=== PATIENT | male | born 1975 ===

== ENCOUNTER 2018-03-23 19:44 | Inpatient (IN) | payer OTHER ==
[2018-03-23] MEDS ORDERED: Piperacill/Tazo 3.375gm in Dex 3.375 GM/50 ML BAG IVPB STA (21:19)
[2018-03-23] MEDS ORDERED: Vancomycin 1 gm/NS 200 ml 1 GM/200 ML BAG IVPB STA (21:19)
--- NOTE | 2018-03-23 21:32 | C.PDOC ---
History Of Present Illness 42 year old male with a Hx of diabetes presents to the ER with a complaint of left foot redness and swelling for the past 4 days. Patient was placed on keflex with no improvement which prompted visit. Denies fever, chills, nausea, or vomiting. Time Seen by Provider: 03/23/18 21:07 Chief Complaint (Nursing): Lower Extremity Problem/Injury History Per: Patient History/Exam Limitations: no limitations Onset/Duration Of Symptoms: Days Current Symptoms Are (Timing): Still Present Recent travel outside of the [place]: No Past Medical History Reviewed: Historical Data, Nursing Documentation, Vital Signs Vital Signs: Last Vital Signs Temp 98.7 F 03/23/18 20:08 Pulse 90 03/23/18 20:08 Resp 18 03/23/18 20:08 BP 150/92 H 03/23/18 20:08 Pulse Ox 99 03/23/18 23:26 - Medical History PMH: Diabetes Surgical History: No Surg Hx Family History: States: Unknown Family Hx - Social History Hx Alcohol Use: Yes Hx Substance Use: No - Immunization History Hx Tetanus Toxoid Vaccination: Yes Hx Influenza Vaccination: No Hx Pneumococcal Vaccination: No Review Of Systems Except As Marked, All Systems Reviewed And Found Negative. Constitutional: Negative for: Fever, Chills Musculoskeletal: Positive for: Other (Foot redness) Physical Exam - Physical Exam Appears: Non-toxic Skin: Warm, Dry Head: Atraumatic, Normacephalic Eye(s): bilateral: Normal Inspection Oral Mucosa: Moist Chest: Symmetrical, No Tenderness Cardiovascular: Rhythm Regular Respiratory: Normal Breath Sounds, No Rales, No Rhonchi, No Wheezing Gastrointestinal/Abdominal: Soft, No Tenderness Back: No CVA Tenderness Extremity: Normal ROM (x4), Capillary Refill (<2 seconds), Other (Left great toe ulcer, redness and swelling to dorsal aspect of left foot) Pulses: Left Dorsalis Pedis: Normal, Right Dorsalis Pedis: Normal Neurological/Psych: Oriented x3, Normal Speech, Normal Motor, Normal Sensation Gait: Steady ED Course And Treatment - Laboratory Results Result Diagrams: 03/23/18 21:43 03/23/18 21:43 ECG: Interpreted By Me ECG Rhythm: Sinus Rhythm Interpretation Of ECG: nsr at rate of 85 bpm with nrm intervals, nrm axis, no st or twave abn. O2 Sat by Pulse Oximetry: 99 (Room air) Pulse Ox Interpretation: Normal Medical Decision Making Medical Decision Making: Plan: * Blood work * EKG * CXR * Urinalysis * Left foot x-ray * Zosyn * Vanco Assessment: Diabetic foot patient failed outpatient treatment will admit to medical surgical floor s/o Dr. Lindsey Discussed case with Dr. Lindsey at 1121 pm cxr - preliminary reading nad foot xray - prelim. reading no gas, no fracture. Disposition Discussed With DrPankaj: Mary Lindsey Counseled Patient/Family Regarding: Studies Performed, Diagnosis - Disposition Disposition: HOSPITALIZED Disposition Time: 23:25 Condition: FAIR - Clinical Impression Clinical Impression: Cellulitis - Scribe Statement The provider has reviewed the documentation as recorded by the Scribkathleen Aguirre All medical record entries made by the Tonjaibkathleen were at my direction and personally dictated by me. I have reviewed the chart and agree that the record accurately reflects my personal performance of the history, physical exam, medical decision making, and the department course for this patient. I have also personally directed, reviewed, and agree with the discharge instructions and disposition.
[2018-03-23 21:47] LABS: BASO % 0.5 % (0.0-2.0); EOS # 0.3 K/uL (0.0-0.7); EOS % 4.8 % (0.0-4.0); HEMOGLOBIN 13.2 g/dL (12.0-18.0); LYMPH # 2.2 K/uL (1.0-4.3); LYMPH % 40.1 % (20.0-40.0); MEAN CELL VOLUME 84.1 fL (80.0-94.0); MEAN CORPUSCULAR HEMOGLOBIN 29.3 pg (27.0-31.0); MEAN CORPUSCULAR HGB CONC 34.9 g/dL (33.0-37.0); MEAN PLATELET VOLUME 9.7 fL (7.2-11.7); MONO # 0.3 K/uL (0.0-0.8); MONO % 6.3 % (0.0-10.0); NEUT # 2.7 K/uL (1.8-7.0); NEUT % 48.3 % (50.0-75.0); NRBC % 0.1 % (0.0-2.0); RBC 4.48 Mil/uL (4.40-5.90); RED CELL DISTRIBUTION WIDTH 13.3 % (11.5-14.5); WHITE BLOOD COUNT 5.6 K/uL (4.8-10.8)
[2018-03-23 22:01] LABS: ALB/GLOB RATIO 1.5 (1.0-2.1); ALBUMIN 4.5 g/dL (3.5-5.0); ALT/SGPT 47 U/L (21-72); AST/SGOT 33 U/L (17-59); BLOOD UREA NITROGEN 16 mg/dL (9-20); CALCIUM 9.3 mg/dl (8.6-10.4); GFR AFRICAN-AMERICAN > 60; GFR NON-AFRICAN AMERICAN > 60
[2018-03-23 22:25] LABS: VENOUS BLOOD GAS BASE EXCESS 1.8 mmol/L (0.0-2.0); VENOUS BLOOD GAS PCO2 37 mmHg (40-60); VENOUS BLOOD GAS PO2 71 mm/Hg (30-55); VENOUS BLOOD PH 7.45 (7.32-7.43)
[2018-03-23] MEDS ORDERED: Piperacillin/Tazobact 3.375 gm 100 ML IVPB ONE (22:33)
[2018-03-23 22:56] LABS: URINE BILIRUBIN NEGATIVE (NEGATIVE); URINE BLOOD NEGATIVE (NEGATIVE); URINE CLARITY Clear (Clear); URINE COLOR Straw (YELLOW); URINE GLUCOSE (UA) NORMAL (Normal); URINE LEUKOCYTE ESTERASE NEG Leu/uL (Negative); URINE PROTEIN NEGATIVE (NEGATIVE); URINE UROBILINOGEN NORMAL mg/dL (0.2-1.0)
[2018-03-24 00:44] VITALS: RESP 20
[2018-03-24] MEDS: Piperacill/Tazo 3.375gm in Dex 3.375 GM/50 ML BAG IVPB SCH ×3 (05:49→21:19)
[2018-03-24] MEDS: (Novolin R) Insulin Human Regular 100 units/ml vial SC SCH ×4 (07:45→21:18)
[2018-03-24] MEDS ORDERED: (Lantus) Insulin Glargine, Recombinant SC SCH (09:00)
[2018-03-24 09:11] LABS: BASO % 0.5 % (0.0-2.0); EOS # 0.2 K/uL (0.0-0.7); HEMOGLOBIN 13.5 g/dL (12.0-18.0); LYMPH # 1.7 K/uL (1.0-4.3); LYMPH % 26.4 % (20.0-40.0); MEAN CELL VOLUME 84.6 fL (80.0-94.0); MEAN CORPUSCULAR HEMOGLOBIN 30.4 pg (27.0-31.0); MEAN CORPUSCULAR HGB CONC 35.9 g/dL (33.0-37.0); MEAN PLATELET VOLUME 10.1 fL (7.2-11.7); MONO # 0.4 K/uL (0.0-0.8); MONO % 6.5 % (0.0-10.0); NEUT # 4.1 K/uL (1.8-7.0); NEUT % 63.6 % (50.0-75.0); NRBC % 0.1 % (0.0-2.0); RBC 4.43 Mil/uL (4.40-5.90); RED CELL DISTRIBUTION WIDTH 13.4 % (11.5-14.5); WHITE BLOOD COUNT 6.5 K/uL (4.8-10.8)
[2018-03-24 09:34] LABS: ALB/GLOB RATIO 1.5 (1.0-2.1); ALBUMIN 4.3 g/dL (3.5-5.0); ALT/SGPT 45 U/L (21-72); AST/SGOT 29 U/L (17-59); BLOOD UREA NITROGEN 14 mg/dL (9-20); CALCIUM 9.3 mg/dl (8.6-10.4); GFR AFRICAN-AMERICAN > 60; GFR NON-AFRICAN AMERICAN > 60
[2018-03-24] MEDS ORDERED: MUPIROCIN 2% TOP SCH (10:00)
--- NOTE | 2018-03-24 10:02 | RAD ---
HISTORY: Sepsis Patient COMPARISON: No prior. FINDINGS: LUNGS: No active pulmonary disease. PLEURA: No significant pleural effusion identified, no pneumothorax apparent. CARDIOVASCULAR: Normal. OSSEOUS STRUCTURES: No significant abnormalities. VISUALIZED UPPER ABDOMEN: Normal. OTHER FINDINGS: None. IMPRESSION: No active disease.
--- NOTE | 2018-03-24 10:03 | RAD ---
PROCEDURE: Left Foot Radiographs. HISTORY: toe infection COMPARISON: None. FINDINGS: BONES: No acute fracture. JOINTS: Normal. SOFT TISSUES: Normal. OTHER FINDINGS: None. IMPRESSION: No demonstrated fracture or dislocation.
--- NOTE | 2018-03-24 11:48 | CP.PCM.CON ---
History of Present Illness - History of Present Illness History of Present Illness: INFECTIOUS DISEASE CONSULT; HPI; 42 year old male with a Hx of diabetes presents to the ER with a complaint of left foot redness and swelling for the past 4 days. PATIENT STATES HE DEVELOPED A BLISTER WHICH POPPED OPEN WITH SOME SEROUS SANGUINOUS DRAINAGE. Patient was placed on keflex with no improvement which prompted visit. Denies fever, chills, nausea, or vomiting. X-RAY OF THE LEFT FOOT SHOWED NO ACUTE FRACTURE. INFECTIOUS DISEASE CONSULTATION REQUESTED BY PMD FOR DIABETIC FOOT INFECTION. PATIENT PRESENTLY STARTED ON iv zOSYN 3.375 EVERY 8 HOURLY. 03/24/18 PMH: Diabetes Surgical History: No Surg Hx Family History: States: Unknown Family Hx - Social History Hx Alcohol Use: Yes Hx Substance Use: No - Immunization History Hx Tetanus Toxoid Vaccination: Yes Hx Influenza Vaccination: No Hx Pneumococcal Vaccination: No ALLERGY; NKA. Review of Systems - Constitutional Constitutional: absent: Chills, Fever - EENT Eyes: absent: Change in Vision, Floaters Nose/Mouth/Throat: absent: Mouth Lesions - Cardiovascular Cardiovascular: absent: Chest Pain, Dyspnea - Gastrointestinal Gastrointestinal: absent: Abdominal Pain, Fecal Incontinence, Nausea, Vomiting - Musculoskeletal Musculoskeletal: As Per HPI - Integumentary Integumentary: Skin Ulcer (LEFT FOOT) Additional comments: Left great toe ulcer, redness and swelling to dorsal aspect of left foot) Pulses: Left Dorsalis Pedis: Normal, Right Dorsalis Pedis: Normal - Neurological Neurological: absent: Headaches - Hematologic/Lymphatic Hematologic: As Per HPI. absent: Easy Bleeding, Easy Bruising, Lymphadenopathy Past Patient History - Past Medical History & Family History Past Medical History?: No - Past Social History Smoking Status: Smoker Currrent Status Unknown - ENDOCRINE/METABOLIC Hx Diabetes Mellitus Type 1: Yes - HEMATOLOGICAL/ONCOLOGICAL Hx Blood Disorders: No Hx Blood Transfusions: No - INTEGUMENTARY Other/Comment: left big toe skininfection (03/11/18) - MUSCULOSKELETAL/RHEUMATOLOGICAL Hx Falls: No - GASTROINTESTINAL Hx Gastrointestinal Disorders: No - GENITOURINARY/GYNECOLOGICAL Hx Genitourinary Disorders: No - PSYCHIATRIC Hx Substance Use: No - SURGICAL HISTORY Hx Surgeries: No Other/Comment: no surgical history - ANESTHESIA Hx Anesthesia: No Meds Allergies/Adverse Reactions: Allergies Allergy/AdvReac Type Severity Reaction Status Date / Time No Known Allergies Allergy Unverified 03/23/18 20:01 - Medications Medications: Current Medications Gabapentin (Neurontin) 300 mg PO BID [facility] Last Admin: 03/24/18 09:48 Dose: 300 mg Heparin Sodium (Porcine) (Heparin) 5,000 units SC Q12 [facility] Last Admin: 03/24/18 09:48 Dose: 5,000 units Piperacillin Sod/Tazobactam Sod (Zosyn 3.375 Gm Iv Premix) 3.375 gm in 50 mls @ 100 mls/hr IVPB Q8 [facility] PRN Reason: Protocol Last Admin: 03/24/18 05:49 Dose: 100 mls/hr Vancomycin HCl 1,000 mg/ (Sodium Chloride) 250 mls @ 166.6 mls/hr IVPB Q12H [facility] PRN Reason: Protocol Insulin Glargine (Lantus) 15 unit SC TIDPC [facility] Insulin Human Regular (Novolin R) 0 unit SC ACHS [facility] PRN Reason: Protocol Last Admin: 03/24/18 07:45 Dose: 1 unit Metformin HCl (Glucophage Xr) 500 mg PO BID [facility] Last Admin: 03/24/18 09:48 Dose: 500 mg Mupirocin (Bactroban Ointment) 1 gm TOP BID [facility] Last Admin: 03/24/18 10:07 Dose: 1 applic Pneumococcal Polyvalent Vaccine (Pneumovax 23 Vaccine) 0.5 ml IM .ONCE ONE Stop: 03/26/18 10:01 Physical Exam - Constitutional Appears: No Acute Distress - Head Exam Head Exam: NORMAL INSPECTION - Eye Exam Eye Exam: EOMI, PERRL - ENT Exam ENT Exam: Mucous Membranes Moist - Neck Exam Neck exam: Positive for: Normal Inspection - Respiratory Exam Respiratory Exam: Clear to Auscultation Bilateral, NORMAL BREATHING PATTERN - Cardiovascular Exam Cardiovascular Exam: REGULAR RHYTHM, +S1, +S2 - GI/Abdominal Exam GI & Abdominal Exam: Normal Bowel Sounds, Soft. absent: Organomegaly, Tenderness - Extremities Exam Extremities exam: Positive for: normal capillary refill, pedal pulses present ( Left great toe ulcer, redness and swelling to dorsal aspect of left foot)). Negative for: calf tenderness, pedal edema - Neurological Exam Neurological exam: Oriented x3, Reflexes Normal - Psychiatric Exam Psychiatric exam: Normal Mood - Skin Skin Exam: Normal Color, Warm Results - Vital Signs Recent Vital Signs: Last Vital Signs Temp 98 F 03/24/18 07:42 Pulse 81 03/24/18 07:42 Resp 20 03/24/18 07:42 BP 136/91 H 03/24/18 07:42 Pulse Ox 100 03/24/18 07:42 - Labs Result Diagrams: 03/24/18 08:55 03/24/18 08:55 Labs: Laboratory Results - last 24 hr 03/23/18 03/23/18 03/23/18 20:10 21:43 21:43 WBC 5.6 RBC 4.48 Hgb 13.2 Hct 37.7 MCV 84.1 MCH 29.3 MCHC 34.9 RDW 13.3 Plt Count 182 MPV 9.7 Neut % (Auto) 48.3 L Lymph % (Auto) 40.[address] [place] % (Auto) 6.3 Eos % (Auto) 4.8 H Baso % (Auto) 0.5 Neut # (Auto) 2.7 Lymph # (Auto) 2.2 [place] # (Auto) 0.3 Eos # (Auto) 0.3 Baso # (Auto) 0.0 pO2 VBG pH VBG pCO2 VBG HCO3 VBG Total CO2 VBG O2 Sat (Calc) VBG Base Excess VBG Potassium Glucose Lactate FiO2 Sodium 137 Potassium 4.1 Chloride 102 Carbon Dioxide 24 Anion Gap 16 BUN 16 Creatinine 0.7 L Est GFR ( Amer) > 60 Est GFR (Non-Af Amer) > 60 POC Glucose (mg/dL) 217 H Random Glucose 182 H Calcium 9.3 Total Bilirubin 0.6 AST 33 ALT 47 Alkaline Phosphatase 58 Total Protein 7.5 Albumin 4.5 Globulin 3.1 Albumin/Globulin Ratio 1.5 Venous Blood Potassium Urine Color Urine Clarity Urine pH Ur Specific [place] Urine Protein Urine Glucose (UA) Urine Ketones Urine Blood Urine Nitrate Urine Bilirubin Urine Urobilinogen Ur Leukocyte Esterase Urine WBC (Auto) 03/23/18 03/23/18 03/24/18 22:20 22:49 07:17 WBC RBC Hgb Hct MCV MCH MCHC RDW Plt Count MPV Neut % (Auto) Lymph % (Auto) [place] % (Auto) Eos % (Auto) Baso % (Auto) Neut # (Auto) Lymph # (Auto) [place] # (Auto) Eos # (Auto) Baso # (Auto) pO2 71 H VBG pH 7.45 H VBG pCO2 37 L VBG HCO3 26.3 VBG Total CO2 26.8 VBG O2 Sat (Calc) 97.8 H VBG Base Excess 1.8 VBG Potassium 3.6 Glucose 164 H Lactate 0.9 FiO2 21.0 Sodium 138.0 Potassium Chloride 108.0 H Carbon Dioxide Anion Gap BUN Creatinine Est GFR ( Amer) Est GFR (Non-Af Amer) POC Glucose (mg/dL) 153 H Random Glucose Calcium Total Bilirubin AST ALT Alkaline Phosphatase Total Protein Albumin Globulin Albumin/Globulin Ratio Venous Blood Potassium 3.6 Urine Color Straw Urine Clarity Clear Urine pH 5.0 Ur Specific [place] 1.005 Urine Protein Negative Urine Glucose (UA) Normal Urine Ketones Negative Urine Blood Negative Urine Nitrate Negative Urine Bilirubin Negative Urine Urobilinogen Normal Ur Leukocyte Esterase Neg Urine WBC (Auto) < 1 03/24/18 03/24/18 03/24/18 08:55 08:55 11:05 WBC 6.5 RBC 4.43 Hgb 13.5 Hct 37.5 MCV 84.6 MCH 30.4 MCHC 35.9 RDW 13.4 Plt Count 175 MPV 10.1 Neut % (Auto) 63.6 Lymph % (Auto) 26.4 [place] % (Auto) 6.5 Eos % (Auto) 3.0 Baso % (Auto) 0.5 Neut # (Auto) 4.1 Lymph # (Auto) 1.7 [place] # (Auto) 0.4 Eos # (Auto) 0.2 Baso # (Auto) 0.0 pO2 VBG pH VBG pCO2 VBG HCO3 VBG Total CO2 VBG O2 Sat (Calc) VBG Base Excess VBG Potassium Glucose Lactate FiO2 Sodium 140 Potassium 4.1 Chloride 100 Carbon Dioxide 30 Anion Gap 15 BUN 14 Creatinine 0.8 Est GFR ( Amer) > 60 Est GFR (Non-Af Amer) > 60 POC Glucose (mg/dL) 233 H Random Glucose 173 H Calcium 9.3 Total Bilirubin 0.9 AST 29 ALT 45 Alkaline Phosphatase 64 Total Protein 7.1 Albumin 4.3 Globulin 2.8 Albumin/Globulin Ratio 1.5 Venous Blood Potassium Urine Color Urine Clarity Urine pH Ur Specific [place] Urine Protein Urine Glucose (UA) Urine Ketones Urine Blood Urine Nitrate Urine Bilirubin Urine Urobilinogen Ur Leukocyte Esterase Urine WBC (Auto) - Imaging and Cardiology Chest x-ray Status: Report reviewed by me (NAD) Assessment & Plan (1) Diabetic infection of left foot Assessment and Plan: PANCULTURES. ESR. CRP. MRSA SCREEN. CONTINUE iv ZOSYN 3.375 EVERY 8 HOURLY 03/24/18. ADD iv VANCOMYCIN 1 G EVERY 12 HOURLY 03/24/18. follow-up Vanco trough level prior to the fourth dose and keep it between 15 - 20. Monitor renal functions . LWC . THREE-PHASE BONE SCAN R/O OSTEOMYELITIS LEFT BIG TOE. Status: Acute (2) Cellulitis Status: Acute (3) DM (diabetes mellitus) Assessment and Plan: PATIENT HAS DIABETES MELLITUS -TYPE 2. MONITOR HEMOGLOBIN -A1C PATIENT Status: Acute
[2018-03-24] MEDS: Vancomycin 1 gm/NS 200 ml 1 GM/200 ML BAG IVPB SCH (14:15)
--- NOTE | 2018-03-24 14:43 | CP.PCM.HP ---
History of Present Illness - History of Present Illness History of Present Illness: COMPREHENSIVE HISTORY & PHYSICAL EXAM HPI 42 years old male admitted from the emergency room with swelling and ulceration of the left foot with history of diabetes. 4 days ago patient had pain and swelling of the left foot which is increased in intensity and size associated with pain. There is also mild discharge. PAST HIST. Type 2 diabetes on insulin PERSONAL HIST: Smoking. N Alcohol. N Allergy N Travel_- . FAMILY HIST : ROS : Constitutional: Negative for weight change, chills, night sweats, fatigue and usage of assist device. Eyes: Negative for redness, swelling, itching, discharge, vision changes, blurry vision, double vision, glaucoma, cataracts, Ears: Negative for hearing loss, ringing, , tinnitus, vertigo Nose: Negative for rhinorrhea, stuffiness, sniffing, itching, postnasal drip, discoloration, nasal congestion and epistaxis. Throat: Negative for throat clearing, sore throat, hoarseness, difficulty swallowing and difficulty speaking. Respiratory: Negative for cough, , sputum production, chest tightness, wheezing, pleuritic chest pain ,daytime somnolence, chronic cough, hemoptysis, snoring at night, Cardiovascular: Negative for chest pain, palpitations, orthopnea, PND, Edema of legs, leg cramps, angina, claudication, , irregular heartbeat, Neurology: Negative for irritability, muscle weakness, numbness and tingling, seizures, tremors, migraines, slurred speech, syncope, memory loss, mood changes , recurrent headaches Gastrointestinal: Negative for difficulty swallowing, diarrhea, constipation, black stools, rectal bleeding, nausea, flatulence, reflux, poor appetite, changes in bowel habits, abdominal pain Genitourinary: Negative for frequent urination, hematuria, discharge, incontinence, urinary retention, frequent UTI, Psychiatric: Negative for depression, anxiety/panic, suicidal tendencies, Musculoskeletal: Negative for swollen joints, back pain, , neck pain, morning stiffness of joints, . Skin: Negative for rash, ulcers, itching, dry skin and pigmented lesions. P/E: Constitutional: Appears stated age and in no apparent distress. Head: Normocephalic. Ears: External ear canals patent without inflammation. Tympanic membranes intact with normal light reflex and landmark. Eyes: Pupils are central, bilaterally equal, symmetrical and reacts to light with normal movements and no icterus or pallor. Nose: External nares are patent. Mucosa is pink Mouth-Throat: Good general appearance and condition. No post-pharyngeal/oropharyngeal erythema and tonsillar hypertrophy. Good dental hygiene. Neck-Lymphatic: Neck is supple with normal ROM, no thyromegaly, lymph nodes or masses. JVD is normal with no carotid bruit. Lungs: Clear to percussion and auscultation with bilateral normal air entry. Cardiovascular: S1 and S2 are normal with no murmurs, gallops and rub. GI Exam: No hepatomegaly. Abdomen is soft and non-tender. No Organomegaly , masses or hernias are evident and bowel sounds are normal and active. Neurology: Higher function and all cranial nerves intact, with no gross motor or sensory deficit. Superficial and deep reflexes are normal with downwards planters. No cerebellar deficit with normal gait. Musculoskeletal: No tender spots with normal curvature of the spine with no swelling or restricted ROM of the small and large joints. Extremities: Homans sign absent. Intact pulses with no pitting edema, calf tenderness or skin color changes. Dorsum of the left foot shows erythema and cellulitis the tip of the left toes there is superficial ulceration. Skin: No rash, eruptions or abnormal skin pigmentation LAB/RADIOLOGY: ASSESMENT : Left foot diabetic foot infection. Type 2 diabetes on insulin PLAN: Local therapy for the foot, IV antibiotics and ID evaluation. Present on Admission - Present on Admission Any Indicators Present on Admission: No Past Patient History - Past Medical History & Family History Past Medical History?: No - Past Social History Smoking Status: Smoker Currrent Status Unknown - ENDOCRINE/METABOLIC Hx Diabetes Mellitus Type 1: Yes - HEMATOLOGICAL/ONCOLOGICAL Hx Blood Disorders: No Hx Blood Transfusions: No - INTEGUMENTARY Other/Comment: left big toe skininfection (03/11/18) - MUSCULOSKELETAL/RHEUMATOLOGICAL Hx Falls: No - GASTROINTESTINAL Hx Gastrointestinal Disorders: No - GENITOURINARY/GYNECOLOGICAL Hx Genitourinary Disorders: No - PSYCHIATRIC Hx Substance Use: No - SURGICAL HISTORY Hx Surgeries: No Other/Comment: no surgical history - ANESTHESIA Hx Anesthesia: No Meds Allergies/Adverse Reactions: Allergies Allergy/AdvReac Type Severity Reaction Status Date / Time No Known Allergies Allergy Unverified 03/23/18 20:01 Results - Vital Signs Recent Vital Signs: Last Vital Signs Temp 98 F 07/04/18 07:42 Pulse 81 03/24/18 07:42 Resp 20 03/24/18 07:42 BP 136/91 H 03/24/18 07:42 Pulse Ox 100 03/24/18 07:42 - Labs Result Diagrams: 03/24/18 08:55 03/24/18 08:55 Labs: Laboratory Results - last 24 hr 03/23/18 03/23/18 03/23/18 20:10 21:43 21:43 WBC 5.6 RBC 4.48 Hgb 13.2 Hct 37.7 MCV 84.1 MCH 29.3 MCHC 34.9 RDW 13.3 Plt Count 182 MPV 9.7 Neut % (Auto) 48.3 L Lymph % (Auto) 40.1 H [place] % (Auto) 6.3 Eos % (Auto) 4.8 H Baso % (Auto) 0.5 Neut # (Auto) 2.7 Lymph # (Auto) 2.2 [place] # (Auto) 0.3 Eos # (Auto) 0.3 Baso # (Auto) 0.0 pO2 VBG pH VBG pCO2 VBG HCO3 VBG Total CO2 VBG O2 Sat (Calc) VBG Base Excess VBG Potassium Glucose Lactate FiO2 Sodium 137 Potassium 4.1 Chloride 102 Carbon Dioxide 24 Anion Gap 16 BUN 16 Creatinine 0.7 L Est GFR ( Amer) > 60 Est GFR (Non-Af Amer) > 60 POC Glucose (mg/dL) 217 H Random Glucose 182 H Calcium 9.3 Total Bilirubin 0.6 AST 33 ALT 47 Alkaline Phosphatase 58 Total Protein 7.5 Albumin 4.5 Globulin 3.1 Albumin/Globulin Ratio 1.5 Venous Blood Potassium Urine Color Urine Clarity Urine pH Ur Specific [place] Urine Protein Urine Glucose (UA) Urine Ketones Urine Blood Urine Nitrate Urine Bilirubin Urine Urobilinogen Ur Leukocyte Esterase Urine WBC (Auto) 03/23/18 03/23/18 03/24/18 22:20 22:49 07:17 WBC RBC Hgb Hct MCV MCH MCHC RDW Plt Count MPV Neut % (Auto) Lymph % (Auto) [place] % (Auto) Eos % (Auto) Baso % (Auto) Neut # (Auto) Lymph # (Auto) [place] # (Auto) Eos # (Auto) Baso # (Auto) pO2 71 H VBG pH 7.45 H VBG pCO2 37 L VBG HCO3 26.3 VBG Total CO2 26.8 VBG O2 Sat (Calc) 97.8 H VBG Base Excess 1.8 VBG Potassium 3.6 Glucose 164 H Lactate 0.9 FiO2 21.0 Sodium 138.0 Potassium Chloride 108.0 H Carbon Dioxide Anion Gap BUN Creatinine Est GFR ( Amer) Est GFR (Non-Af Amer) POC Glucose (mg/dL) 153 H Random Glucose Calcium Total Bilirubin AST ALT Alkaline Phosphatase Total Protein Albumin Globulin Albumin/Globulin Ratio Venous Blood Potassium 3.6 Urine Color Straw Urine Clarity Clear Urine pH 5.0 Ur Specific [place] 1.005 Urine Protein Negative Urine Glucose (UA) Normal Urine Ketones Negative Urine Blood Negative Urine Nitrate Negative Urine Bilirubin Negative Urine Urobilinogen Normal Ur Leukocyte Esterase Neg Urine WBC (Auto) < 1 03/24/18 03/24/18 03/24/18 08:55 08:55 11:05 WBC 6.5 RBC 4.43 Hgb 13.5 Hct 37.5 MCV 84.6 MCH 30.4 MCHC 35.9 RDW 13.4 Plt Count 175 MPV 10.1 Neut % (Auto) 63.6 Lymph % (Auto) 26.4 [place] % (Auto) 6.5 Eos % (Auto) 3.0 Baso % (Auto) 0.5 Neut # (Auto) 4.1 Lymph # (Auto) 1.7 [place] # (Auto) 0.4 Eos # (Auto) 0.2 Baso # (Auto) 0.0 pO2 VBG pH VBG pCO2 VBG HCO3 VBG Total CO2 VBG O2 Sat (Calc) VBG Base Excess VBG Potassium Glucose Lactate FiO2 Sodium 140 Potassium 4.1 Chloride 100 Carbon Dioxide 30 Anion Gap 15 BUN 14 Creatinine 0.8 Est GFR ( Amer) > 60 Est GFR (Non-Af Amer) > 60 POC Glucose (mg/dL) 233 H Random Glucose 173 H Calcium 9.3 Total Bilirubin 0.9 AST 29 ALT 45 Alkaline Phosphatase 64 Total Protein 7.1 Albumin 4.3 Globulin 2.8 Albumin/Globulin Ratio 1.5 Venous Blood Potassium Urine Color Urine Clarity Urine pH Ur Specific [place] Urine Protein Urine Glucose (UA) Urine Ketones Urine Blood Urine Nitrate Urine Bilirubin Urine Urobilinogen Ur Leukocyte Esterase Urine WBC (Auto)
[2018-03-24] MEDS: (Lantus) Insulin Glargine, Recombinant SC SCH (21:20)
[2018-03-25] MEDS: Vancomycin 1 gm/NS 200 ml 1 GM/200 ML BAG IVPB SCH ×2 (00:50→14:23)
[2018-03-25] MEDS: Piperacill/Tazo 3.375gm in Dex 3.375 GM/50 ML BAG IVPB SCH ×3 (06:06→21:01)
[2018-03-25 08:20] LABS: ALB/GLOB RATIO 1.4 (1.0-2.1); ALBUMIN 3.9 g/dL (3.5-5.0); ALT/SGPT 40 U/L (21-72); AST/SGOT 25 U/L (17-59); BILIRUBIN,DIRECT 0.4 mg/dL (0.0-0.4); BLOOD UREA NITROGEN 12 mg/dL (9-20); CALCIUM 8.7 mg/dl (8.6-10.4); GFR AFRICAN-AMERICAN > 60; GFR NON-AFRICAN AMERICAN > 60
[2018-03-25] MEDS: (Novolin R) Insulin Human Regular 100 units/ml vial SC SCH ×4 (08:29→22:06)
[2018-03-25 09:16] LABS: BASO % 0.4 % (0.0-2.0); EOS # 0.2 K/uL (0.0-0.7); EOS % 4.3 % (0.0-4.0); HEMOGLOBIN 13.1 g/dL (12.0-18.0); LYMPH # 1.5 K/uL (1.0-4.3); LYMPH % 31.5 % (20.0-40.0); MEAN CORPUSCULAR HGB CONC 35.7 g/dL (33.0-37.0); MONO # 0.3 K/uL (0.0-0.8); MONO % 7.3 % (0.0-10.0); NEUT # 2.6 K/uL (1.8-7.0); NEUT % 56.5 % (50.0-75.0); RBC 4.37 Mil/uL (4.40-5.90); RED CELL DISTRIBUTION WIDTH 13.9 % (11.5-14.5); WHITE BLOOD COUNT 4.7 K/uL (4.8-10.8)
--- NOTE | 2018-03-25 12:57 | CARD ---
APPROVED REPORT EKG Measurement Heart [id number] <Conclusion> Normal sinus rhythm Normal ECG
--- NOTE | 2018-03-25 13:49 | CP.PCM.PN ---
<Mary Lindsey N - Last Filed: 03/25/18 13:47> Subjective - Date & Time of Evaluation Date of Evaluation: 03/25/18 Time of Evaluation: 13:48 - Subjective Subjective: CHIEF COMPLAINTS TODAY : patient has discomfort in the left foot. ROS. HEENT : N. Resp : No cough, wheezing ,pleuritic CP ,or hemoptysis Cardio : No anginal CP, PND, orthopnea, palpitation GI : No abd.pain, n/v ,diarrhea or GI bleeding . HAND BANDER : No headache, vertigo, focal deficit. Musculoskel : No joint swelling , Derm : No rash Psych : Normal affect. Ext : No swelling ,calf pain PE. Pt. is alert awake in no distress. V.S As noted in the chart Head ,ear nose,throat and eyes : Normal. Neck : Supple with normal carotids. Lungs: Clear air entry. Heart : S1 & S2 normal with S4. No murmur. Abd : Soft non tender with normal bowel sounds. Neuro : Moves all ext. with no localized deficit. Ext : No edema with intact pulses.Non tender calves . Left foot on the dorsum there is mild cellulitis and there is a superficial ulcer in the left big toe. Derm : No rashes or decubitus ulcer. LABS/RADIOLOGY: ASSESSMENT/PLAN : awaiting bone scan for osteomyelitis. Continue IV antibiotics and local wound care and insulin. Objective - Vital Signs/Intake and Output Vital Signs (last 24 hours): Temp Pulse Resp BP Pulse Ox 97.9 F 81 20 144/90 99 03/25/18 07:56 03/25/18 07:56 03/25/18 07:56 03/25/18 07:56 03/25/18 07:56 Intake and Output: 03/25/18 03/25/18 11:59 23:59 Intake Total 450 Balance 450 - Medications Medications: Current Medications Gabapentin (Neurontin) 300 mg PO BID [facility] Last Admin: 03/25/18 10:58 Dose: 300 mg Heparin Sodium (Porcine) (Heparin) 5,000 units SC Q12 [facility] Last Admin: 03/25/18 10:58 Dose: 5,000 units Piperacillin Sod/Tazobactam Sod (Zosyn 3.375 Gm Iv Premix) 3.375 gm in 50 mls @ 100 mls/hr IVPB Q8 [facility] PRN Reason: Protocol Last Admin: 03/25/18 06:06 Dose: 100 mls/hr Vancomycin/Sodium Chloride (Vancomycin 1 Gm/Ns 200 Ml) 1 gm in 200 mls @ 133.333 mls/hr IVPB Q12H [facility] PRN Reason: Protocol Stop: 03/29/18 13:01 Last Admin: 03/25/18 00:50 Dose: 133.333 mls/hr Insulin Glargine (Lantus) 15 unit SC HS [facility] Last Admin: 03/24/18 21:20 Dose: 15 units Insulin Human Regular (Novolin R) 0 unit SC ACHS [facility] PRN Reason: Protocol Last Admin: 03/25/18 12:15 Dose: 3 unit Metformin HCl (Glucophage Xr) 500 mg PO BID [facility] Last Admin: 03/25/18 10:58 Dose: 500 mg Mupirocin (Bactroban Ointment) 1 gm TOP BID [facility] Last Admin: 03/25/18 10:59 Dose: 1 applic Pneumococcal Polyvalent Vaccine (Pneumovax 23 Vaccine) 0.5 ml IM .ONCE ONE Stop: 03/26/18 10:01 - Labs Labs: 03/25/18 07:49 03/25/18 07:49 <Álvaro Gunn - Last Filed: 03/26/18 01:17> Objective - Vital Signs/Intake and Output Vital Signs (last 24 hours): Temp Pulse Resp BP Pulse Ox 97.9 F 79 20 132/86 97 03/25/18 16:00 03/25/18 16:00 03/25/18 16:00 03/25/18 16:00 03/25/18 16:00 Intake and Output: 03/25/18 03/26/18 18:59 06:59 Intake Total 600 350 Output Total 600 Balance 600 -250 - Medications Medications: Current Medications Gabapentin (Neurontin) 300 mg PO BID [facility] Last Admin: 03/25/18 17:12 Dose: 300 mg Heparin Sodium (Porcine) (Heparin) 5,000 units SC Q12 [facility] Last Admin: 03/25/18 21:02 Dose: 5,000 units Piperacillin Sod/Tazobactam Sod (Zosyn 3.375 Gm Iv Premix) 3.375 gm in 50 mls @ 100 mls/hr IVPB Q8 [facility] PRN Reason: Protocol Last Admin: 03/25/18 21:01 Dose: 100 mls/hr Vancomycin/Sodium Chloride (Vancomycin 1 Gm/Ns 200 Ml) 1 gm in 200 mls @ 133.333 mls/hr IVPB Q12H [facility] PRN Reason: Protocol Stop: 03/29/18 13:01 Last Admin: 03/26/18 01:11 Dose: 133.333 mls/hr Insulin Glargine (Lantus) 15 unit SC HS [facility] Last Admin: 03/25/18 21:02 Dose: 15 units Insulin Human Regular (Novolin R) 0 unit SC ACHS [facility] PRN Reason: Protocol Last Admin: 03/25/18 22:06 Dose: Not Given Metformin HCl (Glucophage Xr) 500 mg PO BID [facility] Last Admin: 03/25/18 17:11 Dose: 500 mg Mupirocin (Bactroban Ointment) 1 gm TOP BID [facility] Last Admin: 03/25/18 18:00 Dose: Not Given Pneumococcal Polyvalent Vaccine (Pneumovax 23 Vaccine) 0.5 ml IM .ONCE ONE Stop: 03/26/18 10:01 - Labs Labs: 03/25/18 07:49 03/25/18 07:49 Assessment and Plan (1) Diabetic infection of left foot Status: Acute (2) Cellulitis Status: Acute (3) DM (diabetes mellitus) Status: Acute
--- NOTE | 2018-03-25 16:07 | NM ---
PROCEDURE: Three-phase bone scan HISTORY: Osteomyelitis suspected left 1st toe. COMPARISON: 03/23/2018. Left foot radiographs. TECHNIQUE: Following administration of 24.3 miCu of Tc MDP multiplanar whole body images were obtained. FINDINGS: Flow component: Increased flow to the left 1st digit. Blood pool component: Increased accumulation of radionuclide 1st digit left foot Delayed images at 3:00: Retention of radionuclide 1st digit left foot. Other findings: Evidence for hallux valgus deformity bilaterally. Increased uptake in the left ankle compared to right likely degenerative or posttraumatic IMPRESSION: Positive 3 phase bone scan for acute osseous process corresponding to the 1st digit left foot.
--- NOTE | 2018-03-25 20:32 | CP.PCM.PN ---
Subjective - Date & Time of Evaluation Date of Evaluation: 03/25/18 Time of Evaluation: 20:32 - Subjective Subjective: CHIEF COMPLAINTS TODAY : AFEBRILE, C/O LESS SWELLING /ERYTHEMA LT. BIG TOE DRESSING IN PLACE ROS. HEENT : N. Resp : No cough, wheezing ,pleuritic CP ,or hemoptysis Cardio : No anginal CP, PND, orthopnea, palpitation GI : No abd.pain, n/v ,diarrhea or GI bleeding . 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 Musculoskel : No joint swelling , Derm : No rash Psych : Normal affect. Ext : No swelling ,calf pain PE. Pt. is alert awake in no distress. V.S As noted in the chart Head ,ear nose,throat and eyes : Normal. Neck : Supple with normal carotids. Lungs: Clear air entry. Heart : S1 & S2 normal with S4. No murmur. Abd : Soft non tender with normal bowel sounds. Neuro : Moves all ext. with no localized deficit. Ext : +VE EDEMA LT. FOOT/AND ERYTHEMA with intact pulses.Non tender calves . Left foot on the DORSUM there is a ulcer ON the left big toe +VE DRAINAGE Derm : No rashes or decubitus ulcer. LABS/RADIOLOGY: wbc 4.7 cREATININE WAS 0.7/bun OF 12 LFTS N tHREE-PHASE BONE SCAN LT FOOT PENDING ASSESSMENT/PLAN : awaiting bone scan for osteomyelitis. Continue IV antibiotics local wound care. ARTERIAL dOPPLER BOTH LOWER EXTREMITIES R/O PVD. Objective - Vital Signs/Intake and Output Vital Signs (last 24 hours): Temp Pulse Resp BP Pulse Ox 97.9 F 79 20 132/86 97 03/25/18 16:00 03/25/18 16:00 03/25/18 16:00 03/25/18 16:00 03/25/18 16:00 Intake and Output: 03/25/18 03/26/18 18:59 06:59 Intake Total 600 Balance 600 - Medications Medications: Current Medications Gabapentin (Neurontin) 300 mg PO BID [facility] Last Admin: 03/25/18 17:12 Dose: 300 mg Heparin Sodium (Porcine) (Heparin) 5,000 units SC Q12 [facility] Last Admin: 03/25/18 10:58 Dose: 5,000 units Piperacillin Sod/Tazobactam Sod (Zosyn 3.375 Gm Iv Premix) 3.375 gm in 50 mls @ 100 mls/hr IVPB Q8 [facility] PRN Reason: Protocol Last Admin: 03/25/18 14:37 Dose: 100 mls/hr Vancomycin/Sodium Chloride (Vancomycin 1 Gm/Ns 200 Ml) 1 gm in 200 mls @ 133.333 mls/hr IVPB Q12H [facility] PRN Reason: Protocol Stop: 03/29/18 13:01 Last Admin: 03/25/18 14:23 Dose: 133.333 mls/hr Insulin Glargine (Lantus) 15 unit SC HS [facility] Last Admin: 03/24/18 21:20 Dose: 15 units Insulin Human Regular (Novolin R) 0 unit SC ACHS [facility] PRN Reason: Protocol Last Admin: 03/25/18 17:12 Dose: 4 unit Metformin HCl (Glucophage Xr) 500 mg PO BID [facility] Last Admin: 03/25/18 17:11 Dose: 500 mg Mupirocin (Bactroban Ointment) 1 gm TOP BID [facility] Last Admin: 03/25/18 10:59 Dose: 1 applic Pneumococcal Polyvalent Vaccine (Pneumovax 23 Vaccine) 0.5 ml IM .ONCE ONE Stop: 03/26/18 10:01 - Labs Labs: 03/25/18 07:49 03/25/18 07:49 Assessment and Plan (1) Diabetic infection of left foot Status: Acute (2) Cellulitis Status: Acute (3) DM (diabetes mellitus) Status: Acute
[2018-03-25] MEDS: (Lantus) Insulin Glargine, Recombinant SC SCH (21:02)
[2018-03-26] MEDS: Vancomycin 1 gm/NS 200 ml 1 GM/200 ML BAG IVPB SCH ×2 (01:11→13:50)
[2018-03-26] MEDS: Piperacill/Tazo 3.375gm in Dex 3.375 GM/50 ML BAG IVPB SCH ×3 (05:19→21:32)
[2018-03-26 08:11] LABS: BASO % 0.7 % (0.0-2.0); EOS # 0.2 K/uL (0.0-0.7); EOS % 4.3 % (0.0-4.0); HEMOGLOBIN 13.1 g/dL (12.0-18.0); LYMPH # 1.4 K/uL (1.0-4.3); LYMPH % 30.1 % (20.0-40.0); MEAN CELL VOLUME 84.2 fL (80.0-94.0); MEAN CORPUSCULAR HGB CONC 35.7 g/dL (33.0-37.0); MEAN PLATELET VOLUME 9.8 fL (7.2-11.7); MONO # 0.3 K/uL (0.0-0.8); MONO % 6.2 % (0.0-10.0); NEUT # 2.7 K/uL (1.8-7.0); NEUT % 58.7 % (50.0-75.0); NRBC % 0.1 % (0.0-2.0); RBC 4.36 Mil/uL (4.40-5.90); RED CELL DISTRIBUTION WIDTH 13.3 % (11.5-14.5); WHITE BLOOD COUNT 4.6 K/uL (4.8-10.8)
[2018-03-26] MEDS: (Novolin R) Insulin Human Regular 100 units/ml vial SC SCH ×5 (08:30→21:30)
[2018-03-26] MEDS ORDERED: Pneumococcal 23-Valent Vaccine IM ONE ×2 (10:00→11:30)
--- NOTE | 2018-03-26 12:10 | CP.PCM.PN ---
Subjective - Date & Time of Evaluation Date of Evaluation: 03/26/18 Time of Evaluation: 12:10 Objective - Vital Signs/Intake and Output Vital Signs (last 24 hours): Temp Pulse Resp BP Pulse Ox 98.1 F 79 20 137/71 100 03/26/18 08:35 03/26/18 08:35 03/26/18 08:35 03/26/18 08:35 03/26/18 08:35 Intake and Output: 03/26/18 03/26/18 06:59 18:59 Intake Total 960 Output Total 600 Balance 360 - Medications Medications: Current Medications Gabapentin (Neurontin) 300 mg PO BID [facility] Last Admin: 03/26/18 09:33 Dose: 300 mg Heparin Sodium (Porcine) (Heparin) 5,000 units SC Q12 [facility] Last Admin: 03/26/18 09:31 Dose: 5,000 units Piperacillin Sod/Tazobactam Sod (Zosyn 3.375 Gm Iv Premix) 3.375 gm in 50 mls @ 100 mls/hr IVPB Q8 [facility] PRN Reason: Protocol Last Admin: 03/26/18 05:19 Dose: 100 mls/hr Vancomycin/Sodium Chloride (Vancomycin 1 Gm/Ns 200 Ml) 1 gm in 200 mls @ 133.333 mls/hr IVPB Q12H [facility] PRN Reason: Protocol Stop: 03/29/18 13:01 Last Admin: 03/26/18 01:11 Dose: 133.333 mls/hr Insulin Glargine (Lantus) 15 unit SC HS [facility] Last Admin: 03/25/18 21:02 Dose: 15 units Insulin Human Regular (Novolin R) 0 unit SC ACHS [facility] PRN Reason: Protocol Last Admin: 03/26/18 08:30 Dose: 3 unit Metformin HCl (Glucophage Xr) 500 mg PO BID [facility] Last Admin: 03/26/18 09:31 Dose: 500 mg Mupirocin (Bactroban Ointment) 1 gm TOP BID [facility] Last Admin: 03/26/18 09:31 Dose: 1 applic - Labs Labs: 03/26/18 08:01 03/25/18 07:49 Assessment and Plan (1) Diabetic infection of left foot Status: Acute (2) Cellulitis Status: Acute (3) DM (diabetes mellitus) Status: Acute
[2018-03-26 13:28] LABS: BLOOD UREA NITROGEN 11 mg/dL (9-20); GFR AFRICAN-AMERICAN > 60; GFR NON-AFRICAN AMERICAN > 60
--- NOTE | 2018-03-26 13:54 | CP.PCM.PN ---
Subjective - Date & Time of Evaluation Date of Evaluation: 03/26/18 Time of Evaluation: 13:52 - Subjective Subjective: CHIEF COMPLAINTS TODAY : patient has discomfort in the left foot. ROS. HEENT : N. Resp : No cough, wheezing ,pleuritic CP ,or hemoptysis Cardio : No anginal CP, PND, orthopnea, palpitation GI : No abd.pain, n/v ,diarrhea or GI bleeding . CLAIM ATTORNEY : No headache, vertigo, focal deficit. Musculoskel : No joint swelling , Derm : No rash Psych : Normal affect. Ext : No swelling ,calf pain PE. Pt. is alert awake in no distress. V.S As noted in the chart Head ,ear nose,throat and eyes : Normal. Neck : Supple with normal carotids. Lungs: Clear air entry. Heart : S1 & S2 normal with S4. No murmur. Abd : Soft non tender with normal bowel sounds. Neuro : Moves all ext. with no localized deficit. Ext : No edema with intact pulses.Non tender calves . Left foot on the dorsum there is mild cellulitis and there is a superficial ulcer in the left big toe. Derm : No rashes or decubitus ulcer. LABS/RADIOLOGY: three-phase bone scan of the left lower extremity positive for osteomyelitis of the first digit ASSESSMENT/PLAN : patient has osteomyelitis of the left foot. Patient will need prolonged IV antibiotic. Podiatric follow-up. Discussed with the patient and the family of IV antibiotics Objective - Vital Signs/Intake and Output Vital Signs (last 24 hours): Temp Pulse Resp BP Pulse Ox 98.1 F 79 20 137/71 100 03/26/18 08:35 03/26/18 08:35 03/26/18 08:35 03/26/18 08:35 03/26/18 08:35 Intake and Output: 03/26/18 03/26/18 11:59 23:59 Intake Total 610 Balance 610 - Medications Medications: Current Medications Gabapentin (Neurontin) 300 mg PO BID [facility] Last Admin: 03/26/18 09:33 Dose: 300 mg Heparin Sodium (Porcine) (Heparin) 5,000 units SC Q12 [facility] Last Admin: 03/26/18 09:31 Dose: 5,000 units Piperacillin Sod/Tazobactam Sod (Zosyn 3.375 Gm Iv Premix) 3.375 gm in 50 mls @ 100 mls/hr IVPB Q8 [facility] PRN Reason: Protocol Last Admin: 03/26/18 13:48 Dose: 100 mls/hr Vancomycin/Sodium Chloride (Vancomycin 1 Gm/Ns 200 Ml) 1 gm in 200 mls @ 133.333 mls/hr IVPB Q12H [facility] PRN Reason: Protocol Stop: 03/29/18 13:01 Last Admin: 03/26/18 13:50 Dose: Not Given Insulin Glargine (Lantus) 15 unit SC HS [facility] Last Admin: 03/25/18 21:02 Dose: 15 units Insulin Human Regular (Novolin R) 0 unit SC ACHS [facility] PRN Reason: Protocol Last Admin: 03/26/18 12:49 Dose: 3 unit Metformin HCl (Glucophage Xr) 500 mg PO BID [facility] Last Admin: 03/26/18 09:31 Dose: 500 mg Mupirocin (Bactroban Ointment) 1 gm TOP BID [facility] Last Admin: 03/26/18 09:31 Dose: 1 applic - Labs Labs: 03/26/18 08:01 03/26/18 12:58
--- NOTE | 2018-03-26 15:12 | VASCLAB ---
STUDY DESCRIPTION: HISTORY: DIABETIC FOOT ULCER PRIORS: None. TECHNIQUE: Pulse volume recording waveforms and segmental pressures of bilateral lower extremities at multiple levels were obtained. Ankle Brachial Indices (ABIs) were calculated. Report prepared by JACQUELINE Laughlin, RVT RIGHT LOWER EXTREMITY: * Brachial artery: Pressure - 143 mmHg. * High thigh: Pressure - 191 mmHg: Ratio - 134: PVR waveform - Pulsatile * Low thigh: Pressure - 181 mmHg: Ratio - 1.27 PVR waveform: Pulsatile * Calf: Pressure - 174 mmHg: Ratio - 1.22 PVR waveform: Pulsatile * Posterior tibial Artery: Pressure - 168 mmHg: Ratio - 1.17 PVR waveform: Pulsatile * Dorsalis pedis Artery: Pressure - 178 mmHg: Ratio - 1.24 PVR waveform: Pulsatile * Great toe: Pressure - mmHg: Ratio - PVR waveform: Ankle brachial index (BUDDY): 1.24 LEFT LOWER EXTREMITY: * Brachial artery: Pressure - 130 mmHg. * High thigh: Pressure - 187 mmHg: Ratio - 1.31: PVR waveform - Pulsatile * Low thigh: Pressure - 173 mmHg: Ratio - 1.21 PVR waveform: Pulsatile * Calf: Pressure - 181 mmHg: Ratio - 1.27 PVR waveform: Pulsatile * Posterior tibial Artery: Pressure - 175 mmHg: Ratio - 1.22 PVR waveform: Pulsatile * Dorsalis pedis Artery: Pressure - 179 mmHg: Ratio - 1.25 PVR waveform: Pulsatile * Great toe: Pressure - mmHg: Ratio - PVR waveform: Ankle brachial index (BUDDY): 1.25 OTHER FINDINGS: Right: Left: IMPRESSION: Right: There was no evidence of hemodynamically significant arterial insufficiency in the right lower extremity. Left: There was no evidence of hemodynamically significant arterial insufficiency in the left lower extremity.
--- NOTE | 2018-03-26 16:39 | CP.PCM.CON ---
History of Present Illness - History of Present Illness History of Present Illness: Podiatry Consult note: Dr. Figueroa 42 year old male with PMHx of DM was seen and evaluated at bedside for left hallux wound accompanied with cellulitis. Patient reports that he was wearing his work boots and when he took them off he noticed his big toe was swlloen and red. Reports that his whole foot was very swollen and red at the time which led him to make the decision of coming to the hospital. States that his foot is pretty much back to normal now except for the wound at the tip of the toe. Reports that he has been receiving IV abx. Reports that the nurses have been changing his dressing daily. Denies of having any recent F/N/V/C/SOB/CP/ headache. Denies of having any other pedal complains at this time. PMHx: DM PSHx: Denies Allergies: Denies SHx: Denies smoking, EtOH or illicit drug usage Review of Systems - Constitutional Constitutional: As Per HPI Past Patient History - Past Medical History & Family History Past Medical History?: No - Past Social History Smoking Status: Smoker Currrent Status Unknown - ENDOCRINE/METABOLIC Hx Diabetes Mellitus Type 1: Yes - HEMATOLOGICAL/ONCOLOGICAL Hx Blood Disorders: No Hx Blood Transfusions: No - INTEGUMENTARY Other/Comment: left big toe skininfection (03/11/18) - MUSCULOSKELETAL/RHEUMATOLOGICAL Hx Falls: No - GASTROINTESTINAL Hx Gastrointestinal Disorders: No - GENITOURINARY/GYNECOLOGICAL Hx Genitourinary Disorders: No - PSYCHIATRIC Hx Substance Use: No - SURGICAL HISTORY Hx Surgeries: No Other/Comment: no surgical history - ANESTHESIA Hx Anesthesia: No Meds Allergies/Adverse Reactions: Allergies Allergy/AdvReac Type Severity Reaction Status Date / Time No Known Allergies Allergy Unverified 03/23/18 20:01 - Medications Medications: Current Medications Gabapentin (Neurontin) 300 mg PO BID [facility] Last Admin: 03/26/18 09:33 Dose: 300 mg Heparin Sodium (Porcine) (Heparin) 5,000 units SC Q12 [facility] Last Admin: 03/26/18 09:31 Dose: 5,000 units Piperacillin Sod/Tazobactam Sod (Zosyn 3.375 Gm Iv Premix) 3.375 gm in 50 mls @ 100 mls/hr IVPB Q8 [facility] PRN Reason: Protocol Last Admin: 03/26/18 13:48 Dose: 100 mls/hr Vancomycin/Sodium Chloride (Vancomycin 1 Gm/Ns 200 Ml) 1 gm in 200 mls @ 133.333 mls/hr IVPB Q12H [facility] PRN Reason: Protocol Stop: 03/29/18 13:01 Last Admin: 03/26/18 13:50 Dose: Not Given Vancomycin HCl 1,250 mg/ (Sodium Chloride) 250 mls @ 166.6 mls/hr IVPB Q12H [facility] PRN Reason: Protocol Insulin Glargine (Lantus) 15 unit SC HS [facility] Last Admin: 03/25/18 21:02 Dose: 15 units Insulin Human Regular (Novolin R) 0 unit SC ACHS [facility] PRN Reason: Protocol Last Admin: 03/26/18 12:49 Dose: 3 unit Metformin HCl (Glucophage Xr) 500 mg PO BID [facility] Last Admin: 03/26/18 09:31 Dose: 500 mg Mupirocin (Bactroban Ointment) 1 gm TOP BID [facility] Last Admin: 03/26/18 09:31 Dose: 1 applic Physical Exam - Constitutional Appears: Well, Non-toxic, No Acute Distress - Extremities Exam Additional comments: Bilateral LE focused exam VASC: DP/PT pulses are palpable 2/4, Cap refill time: < 3 sec to all digits, Temp gradient: warm to cool from proximal to distal, minimal non-pitting edema noted to the dorsal left forefoot DERM: Wound measuring approx 3.5 cm x 2.0 cm x 0.3 cm was noted at the distal medial aspect of the left hallux, wound bed is 70% fibrotic and 30% grannular with mild serous drainage, no purulent drainage, no malodor, no tunneling, no tracking, minimal periwound erythema NEURO: Protective sensation grossly diminished ORTHO: mild pain on palpation of the wound - Neurological Exam Neurological exam: Alert, Oriented x3 - Psychiatric Exam Psychiatric exam: Normal Affect, Normal Mood Results - Vital Signs Recent Vital Signs: Last Vital Signs Temp 98.1 F 03/26/18 08:35 Pulse 79 03/26/18 08:35 Resp 20 03/26/18 08:35 BP 137/71 03/26/18 08:35 Pulse Ox 100 03/26/18 08:35 - Labs Result Diagrams: 03/26/18 08:01 03/26/18 12:58 Labs: Laboratory Results - last 24 hr 03/25/18 03/25/18 03/26/18 16:47 21:49 07:23 WBC RBC Hgb Hct MCV MCH MCHC RDW Plt Count MPV Neut % (Auto) Lymph % (Auto) [facility] % (Auto) Eos % (Auto) Baso % (Auto) Neut # (Auto) Lymph # (Auto) [facility] # (Auto) Eos # (Auto) Baso # (Auto) Sodium Potassium Chloride Carbon Dioxide Anion Gap BUN Creatinine Est GFR ( Amer) Est GFR (Non-Af Amer) POC Glucose (mg/dL) 277 H 250 H 207 H Random Glucose Calcium Vancomycin Trough 03/26/18 03/26/18 03/26/18 08:01 11:12 12:58 WBC 4.6 L RBC 4.36 L Hgb 13.1 Hct 36.7 MCV 84.2 MCH 30.0 MCHC 35.7 RDW 13.3 Plt Count 162 MPV 9.8 Neut % (Auto) 58.7 Lymph % (Auto) 30.1 [facility] % (Auto) 6.2 Eos % (Auto) 4.3 H Baso % (Auto) 0.7 Neut # (Auto) 2.7 Lymph # (Auto) 1.4 [facility] # (Auto) 0.3 Eos # (Auto) 0.2 Baso # (Auto) 0.0 Sodium Potassium Chloride Carbon Dioxide Anion Gap BUN Creatinine Est GFR ( Amer) Est GFR (Non-Af Amer) POC Glucose (mg/dL) 232 H Random Glucose Calcium Vancomycin Trough < 5.0 L 03/26/18 12:58 WBC RBC Hgb Hct MCV MCH MCHC RDW Plt Count MPV Neut % (Auto) Lymph % (Auto) [facility] % (Auto) Eos % (Auto) Baso % (Auto) Neut # (Auto) Lymph # (Auto) [facility] # (Auto) Eos # (Auto) Baso # (Auto) Sodium 138 Potassium 4.0 Chloride 101 Carbon Dioxide 28 Anion Gap 14 BUN 11 Creatinine 0.7 L Est GFR ( Amer) > 60 Est GFR (Non-Af Amer) > 60 POC Glucose (mg/dL) Random Glucose 198 H Calcium 9.0 Vancomycin Trough Assessment & Plan - Assessment and Plan (Free Text) Assessment: 42 year old male patient with PMHx of DM was evaluated for left hallux wound accompanied with cellulitis Plan: Patient seen and evaluated Discussed plan with attending Dr. Figueroa Labs, vitals and charts reviewed - afebrile, no leukocytosis X-rays of the foot reviewed - no acute periostal reaction, no cortical break, no signs of acute OM Bone scan reviewed - Positive 3 phase bone scan Patient will require PICC line and termite control servicer IV abx Wound culture: G- rods, Corynebacterium species IV abx as per ID - Vancomycin, Zosyn Wound cleaned with saline and dressing applied using betadine, DSD Thank you for the podiatry consult and allowing to take part in patient care Podiatry to monitor patient while in-house Upon discharge, please follow up with Dr. Fgiueroa for further wound care - Date & Time Date: 03/26/18 Time: 16:53
--- NOTE | 2018-03-26 20:07 | CP.PCM.PN ---
Subjective - Date & Time of Evaluation Date of Evaluation: 03/26/18 Time of Evaluation: 20:07 - Subjective Subjective: CHIEF COMPLAINTS TODAY : AFEBRILE, C/O LESS SWELLING /ERYTHEMA LT. BIG TOE DRESSING IN PLACE SEEN BY PODIATRY ROS. HEENT : N. Resp : No cough, wheezing ,pleuritic CP ,or hemoptysis Cardio : No anginal CP, PND, orthopnea, palpitation GI : No abd.pain, n/v ,diarrhea or GI bleeding . 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 Musculoskel : No joint swelling , Derm : No rash Psych : Normal affect. Ext : LEFT FOOT IMPROVED SWELLING AND ERYTHEMA. PE. Pt. is alert awake in no distress. V.S As noted in the chart Head ,ear nose,throat and eyes : Normal. Neck : Supple with normal carotids. Lungs: Clear air entry. Heart : S1 & S2 normal with S4. No murmur. Abd : Soft non tender with normal bowel sounds. Neuro : Moves all ext. with no localized deficit. Ext : +VE EDEMA LT. FOOT/AND ERYTHEMA with intact pulses.Non tender calves . Left foot on the DORSUM there is a ulcer ON the left big toe +VE SEROUS DRAINAGE Derm : No rashes or decubitus ulcer. LABS/RADIOLOGY: WOUND CULTURE LT FOOT +VE GNR/ CORYNEBACTERIUM SPECIES vANCO TROUGH<5.0 LOW wbc 4.6 cREATININE WAS 0.7/bun OF 11 LFTS N tHREE-PHASE BONE SCAN LT BIG TOE +OM ARTERIAL dOPPLERS -VE ASSESSMENT/PLAN : Continue IV zOSYN 3.375 EVERY 8 HOURLY. CONTINUE iv VANCOMYCIN INCREASED DOSE TO 1250 MG iv PIGGYBACK EVERY 12 HOURLY. FOLLOW-UP CULTURES TO ADJUST ANTIBIOTICS. PER PODIATRY PATIENT WILL NEED 4-6WKS IV/PO ANTIBIOTICS. local wound care PER PODIATRY Objective - Vital Signs/Intake and Output Vital Signs (last 24 hours): Temp Pulse Resp BP Pulse Ox 97.5 F L 81 20 136/89 99 03/26/18 15:00 03/26/18 15:00 03/26/18 15:00 03/26/18 15:00 03/26/18 15:00 Intake and Output: 03/26/18 03/27/18 18:59 06:59 Intake Total 400 Balance 400 - Medications Medications: Current Medications Gabapentin (Neurontin) 300 mg PO BID [facility] Last Admin: 03/26/18 17:14 Dose: 300 mg Heparin Sodium (Porcine) (Heparin) 5,000 units SC Q12 [facility] Last Admin: 03/26/18 09:31 Dose: 5,000 units Piperacillin Sod/Tazobactam Sod (Zosyn 3.375 Gm Iv Premix) 3.375 gm in 50 mls @ 100 mls/hr IVPB Q8 [facility] PRN Reason: Protocol Last Admin: 03/26/18 13:48 Dose: 100 mls/hr Vancomycin HCl 1,250 mg/ (Sodium Chloride) 250 mls @ 166.6 mls/hr IVPB Q12H [facility] PRN Reason: Protocol Last Admin: 03/26/18 19:21 Dose: 166.6 mls/hr Insulin Glargine (Lantus) 15 unit SC HS [facility] Last Admin: 03/25/18 21:02 Dose: 15 units Insulin Human Regular (Novolin R) 0 unit SC ACHS [facility] PRN Reason: Protocol Last Admin: 03/26/18 17:14 Dose: 2 unit Metformin HCl (Glucophage Xr) 500 mg PO BID [facility] Last Admin: 03/26/18 17:14 Dose: 500 mg Mupirocin (Bactroban Ointment) 1 gm TOP BID [facility] Last Admin: 03/26/18 09:31 Dose: 1 applic - Labs Labs: 03/26/18 08:01 03/26/18 12:58 Assessment and Plan (1) Diabetic infection of left foot Status: Acute (2) Cellulitis Status: Acute (3) DM (diabetes mellitus) Status: Acute
[2018-03-26] MEDS: (Lantus) Insulin Glargine, Recombinant SC SCH (21:30)
[2018-03-27] MEDS: Piperacill/Tazo 3.375gm in Dex 3.375 GM/50 ML BAG IVPB SCH ×2 (05:28→13:31)
[2018-03-27 07:48] LABS: BASO % 0.4 % (0.0-2.0); EOS # 0.2 K/uL (0.0-0.7); HEMOGLOBIN 13.1 g/dL (12.0-18.0); LYMPH # 1.6 K/uL (1.0-4.3); LYMPH % 20.6 % (20.0-40.0); MEAN CELL VOLUME 83.3 fL (80.0-94.0); MEAN CORPUSCULAR HEMOGLOBIN 29.8 pg (27.0-31.0); MEAN CORPUSCULAR HGB CONC 35.7 g/dL (33.0-37.0); MEAN PLATELET VOLUME 9.9 fL (7.2-11.7); MONO # 0.5 K/uL (0.0-0.8); MONO % 6.4 % (0.0-10.0); NEUT # 5.3 K/uL (1.8-7.0); NEUT % 69.6 % (50.0-75.0); NRBC % 0.1 % (0.0-2.0); RBC 4.4 Mil/uL (4.40-5.90); WHITE BLOOD COUNT 7.6 K/uL (4.8-10.8)
[2018-03-27] MEDS: (Novolin R) Insulin Human Regular 100 units/ml vial SC SCH ×4 (08:04→21:09)
--- NOTE | 2018-03-27 12:03 | CP.PCM.PN ---
<Hipolito Rogers - Last Filed: 03/27/18 11:59> Subjective - Date & Time of Evaluation Date of Evaluation: 03/27/18 Time of Evaluation: 12:00 - Subjective Subjective: Podiatry progress note for attending Dr. Figueroa 42 year old male was seen and evaluated at bedside for left hallux wound accompanied with cellulites. Patient was setting in his bed comfortably and not in acute distress. Patient is AAO X 3. Patient denies of having any recent F/N/V /C/SOB/CP/headache. Denies of having any other pedal complains at this time. Objective - Vital Signs/Intake and Output Vital Signs (last 24 hours): Temp Pulse Resp BP Pulse Ox 97.7 F 91 H 20 131/89 97 03/27/18 08:00 03/27/18 08:00 03/27/18 08:00 03/27/18 08:00 03/27/18 08:00 Intake and Output: 03/27/18 03/27/18 06:59 18:59 Intake Total 550 Balance 550 - Medications Medications: Current Medications Gabapentin (Neurontin) 300 mg PO BID [facility] Last Admin: 03/27/18 09:52 Dose: 300 mg Piperacillin Sod/Tazobactam Sod (Zosyn 3.375 Gm Iv Premix) 3.375 gm in 50 mls @ 100 mls/hr IVPB Q8 [facility] PRN Reason: Protocol Last Admin: 03/27/18 05:28 Dose: 100 mls/hr Vancomycin HCl 1,250 mg/ (Sodium Chloride) 250 mls @ 166.6 mls/hr IVPB Q12H [facility] PRN Reason: Protocol Last Admin: 03/27/18 05:46 Dose: 166.6 mls/hr Insulin Glargine (Lantus) 15 unit SC HS [facility] Last Admin: 03/26/18 21:30 Dose: 15 units Insulin Human Regular (Novolin R) 0 unit SC ACHS [facility] PRN Reason: Protocol Last Admin: 03/27/18 08:04 Dose: 2 unit Metformin HCl (Glucophage Xr) 500 mg PO BID [facility] Last Admin: 03/27/18 09:53 Dose: 500 mg Mupirocin (Bactroban Ointment) 1 gm TOP BID [facility] Last Admin: 03/27/18 11:00 Dose: 1 applic - Labs Labs: 03/27/18 07:29 03/26/18 12:58 - Constitutional Appears: Well, Non-toxic, No Acute Distress - Head Exam Head Exam: ATRAUMATIC, NORMOCEPHALIC - Extremities Exam Additional comments: Bilateral LE focused exam VASC: DP/PT 2/4 b/l, Cap refill time: < 3 sec to all digits, Temp gradient: warm to cool from proximal to distal, minimal non-pitting edema noted to the dorsal left forefoot NEURO: Protective sensation grossly diminished, Gross sensation intact. DERM: Wound measuring approx 3.0 cm x 2.0 cm x 0.3 cm was noted at the distal medial aspect of the left hallux, wound bed is 70% fibrotic and 30% grannular with no drainage, no purulent drainage, no malodor, no tunneling, no tracking, No undermining, No periwound erythema ORTHO: mild pain on palpation of the wound - Neurological Exam Neurological Exam: Alert, Awake, Oriented x3 - Psychiatric Exam Psychiatric exam: Normal Affect, Normal Mood Assessment and Plan - Assessment and Plan (Free Text) Assessment: 42 year old male patient was evaluated for left hallux wound accompanied with cellulitis Plan: Patient seen and evaluated at the bedside Discussed plan with attending Dr. Figueroa Labs, vitals and charts reviewed - afebrile, no leukocytosis X-rays of the foot reviewed - no acute periostal reaction, no cortical break, no signs of acute OM Bone scan reviewed - Positive 3 phase bone scan Patient will require PICC line and computer terminal operator IV abx Wound culture: G- rods, Corynebacterium species IV abx as per ID - Vancomycin, Zosyn Wound dressing applied using betadine, DSD Podiatry to monitor patient while in-house Upon discharge, please follow up with Dr. Figueroa for further wound care <Chivo Figueroa - Last Filed: 03/28/18 19:31> Objective - Vital Signs/Intake and Output Vital Signs (last 24 hours): Temp Pulse Resp BP Pulse Ox 97.9 F 79 20 135/94 H 98 03/28/18 15:04 03/28/18 15:04 03/28/18 15:04 03/28/18 15:04 03/28/18 15:04 Intake and Output: 03/28/18 03/29/18 18:59 06:59 Intake Total 400 Output Total 600 Balance -200 - Medications Medications: Current Medications Gabapentin (Neurontin) 300 mg PO BID [facility] Last Admin: 03/28/18 17:20 Dose: 300 mg Vancomycin HCl 1,250 mg/ (Sodium Chloride) 250 mls @ 166.6 mls/hr IVPB Q12H [facility] PRN Reason: Protocol Last Admin: 03/28/18 17:21 Dose: 166.6 mls/hr Cefepime HCl (Maxipime Iv 2 Gm Premix) 2 gm in 100 mls @ 200 mls/hr IVPB Q12H [facility] PRN Reason: Protocol Stop: 04/01/18 15:31 Last Admin: 03/28/18 15:43 Dose: 200 mls/hr Insulin Glargine (Lantus) 15 unit SC HS [facility] Last Admin: 03/27/18 21:09 Dose: 15 units Insulin Human Regular (Novolin R) 0 unit SC ACHS [facility] PRN Reason: Protocol Last Admin: 03/28/18 17:25 Dose: 2 unit Metformin HCl (Glucophage Xr) 500 mg PO BID [facility] Last Admin: 03/28/18 17:19 Dose: 500 mg Mupirocin (Bactroban Ointment) 1 gm TOP BID [facility] Last Admin: 03/28/18 10:00 Dose: 1 applic - Labs Labs: 03/28/18 05:35 03/28/18 05:35
--- NOTE | 2018-03-27 14:15 | CP.PCM.PN ---
Subjective - Date & Time of Evaluation Date of Evaluation: 03/27/18 Time of Evaluation: 14:14 - Subjective Subjective: CHIEF COMPLAINTS TODAY : patient has discomfort in the left foot. ROS. HEENT : N. Resp : No cough, wheezing ,pleuritic CP ,or hemoptysis Cardio : No anginal CP, PND, orthopnea, palpitation GI : No abd.pain, n/v ,diarrhea or GI bleeding . ALLIGATOR TRAPPER : No headache, vertigo, focal deficit. Musculoskel : No joint swelling , Derm : No rash Psych : Normal affect. Ext : No swelling ,calf pain PE. Pt. is alert awake in no distress. V.S As noted in the chart Head ,ear nose,throat and eyes : Normal. Neck : Supple with normal carotids. Lungs: Clear air entry. Heart : S1 & S2 normal with S4. No murmur. Abd : Soft non tender with normal bowel sounds. Neuro : Moves all ext. with no localized deficit. Ext : No edema with intact pulses.Non tender calves . Left foot on the dorsum there is mild cellulitis and there is a superficial ulcer in the left big toe. Derm : No rashes or decubitus ulcer. LABS/RADIOLOGY: three-phase bone scan of the left lower extremity positive for osteomyelitis of the first digit. the wound culture of the left big toe shows Enterobacter cloaca plus Corynebacterium ASSESSMENT/PLAN : continue IV antibiotics as ordered by ID. Local wound care. PICC line on Thursday and plan for IV antibiotics as an outpatient. Objective - Vital Signs/Intake and Output Vital Signs (last 24 hours): Temp Pulse Resp BP Pulse Ox 97.7 F 91 H 20 131/89 97 03/27/18 08:00 03/27/18 08:00 03/27/18 08:00 03/27/18 08:00 03/27/18 08:00 Intake and Output: 03/27/18 03/27/18 11:59 23:59 Intake Total 550 Balance 550 - Medications Medications: Current Medications Gabapentin (Neurontin) 300 mg PO BID [facility] Last Admin: 03/27/18 09:52 Dose: 300 mg Piperacillin Sod/Tazobactam Sod (Zosyn 3.375 Gm Iv Premix) 3.375 gm in 50 mls @ 100 mls/hr IVPB Q8 [facility] PRN Reason: Protocol Last Admin: 03/27/18 13:31 Dose: 100 mls/hr Vancomycin HCl 1,250 mg/ (Sodium Chloride) 250 mls @ 166.6 mls/hr IVPB Q12H [facility] PRN Reason: Protocol Last Admin: 03/27/18 05:46 Dose: 166.6 mls/hr Insulin Glargine (Lantus) 15 unit SC HS [facility] Last Admin: 03/26/18 21:30 Dose: 15 units Insulin Human Regular (Novolin R) 0 unit SC ACHS [facility] PRN Reason: Protocol Last Admin: 03/27/18 12:21 Dose: 3 unit Metformin HCl (Glucophage Xr) 500 mg PO BID [facility] Last Admin: 03/27/18 09:53 Dose: 500 mg Mupirocin (Bactroban Ointment) 1 gm TOP BID [facility] Last Admin: 03/27/18 11:00 Dose: 1 applic - Labs Labs: 03/27/18 07:29 03/26/18 12:58
--- NOTE | 2018-03-27 14:20 | CP.PCM.PN ---
Subjective - Date & Time of Evaluation Date of Evaluation: 03/27/18 Time of Evaluation: 14:20 - Subjective Subjective: NO ACUTE EVENTS OVERNIGHT. SEEN BY PODIATRY WOUND CULTURES +VE ENTEROBACTER CLOACAE S- CEFEPIME/CIPRO ABX -ADJUSTED.. START IV CEFEPIME 2 G EVERY 12 HOURLY 03/27/18 CONTINUE iv VANCOMYCIN 1250 MG EVERY 12 HOURLY FOR NOW. Objective - Vital Signs/Intake and Output Vital Signs (last 24 hours): Temp Pulse Resp BP Pulse Ox 97.7 F 91 H 20 131/89 97 03/27/18 08:00 03/27/18 08:00 03/27/18 08:00 03/27/18 08:00 03/27/18 08:00 Intake and Output: 03/27/18 03/27/18 06:59 18:59 Intake Total 550 Balance 550 - Medications Medications: Current Medications Gabapentin (Neurontin) 300 mg PO BID [facility] Last Admin: 03/27/18 09:52 Dose: 300 mg Vancomycin HCl 1,250 mg/ (Sodium Chloride) 250 mls @ 166.6 mls/hr IVPB Q12H [facility] PRN Reason: Protocol Last Admin: 03/27/18 05:46 Dose: 166.6 mls/hr Cefepime HCl (Maxipime Iv 2 Gm Premix) 2 gm in 100 mls @ 200 mls/hr IVPB Q12H [facility] PRN Reason: Protocol Stop: 04/01/18 14:31 Insulin Glargine (Lantus) 15 unit SC HS [facility] Last Admin: 03/26/18 21:30 Dose: 15 units Insulin Human Regular (Novolin R) 0 unit SC ACHS [facility] PRN Reason: Protocol Last Admin: 03/27/18 12:21 Dose: 3 unit Metformin HCl (Glucophage Xr) 500 mg PO BID [facility] Last Admin: 03/27/18 09:53 Dose: 500 mg Mupirocin (Bactroban Ointment) 1 gm TOP BID [facility] Last Admin: 03/27/18 11:00 Dose: 1 applic - Labs Labs: 03/27/18 07:29 03/26/18 12:58 - Constitutional Appears: No Acute Distress - Head Exam Head Exam: NORMAL INSPECTION - Eye Exam Eye Exam: EOMI - Neck Exam Neck Exam: Normal Inspection - Respiratory Exam Respiratory Exam: Clear to Ausculation Bilateral, NORMAL BREATHING PATTERN - Cardiovascular Exam Cardiovascular Exam: REGULAR RHYTHM, +S1, +S2 - GI/Abdominal Exam GI & Abdominal Exam: Soft, Normal Bowel Sounds - Extremities Exam Extremities Exam: Pedal Edema (FOOT EDEMA SUBSIDING. DECREASED ERYTHEMA DORSUM OF THE FOOT AND BIG TOE.), Tenderness. absent: Calf Tenderness - Neurological Exam Neurological Exam: Alert, Awake, CN II-XII Intact, Oriented x3, Reflexes Normal - Psychiatric Exam Psychiatric exam: Normal Mood - Skin Skin Exam: Warm Assessment and Plan (1) Diabetic infection of left foot Status: Acute (2) Cellulitis Status: Acute (3) DM (diabetes mellitus) Status: Acute - Assessment and Plan (Free Text) Plan: DC IV zOSYN 3.375 EVERY 8 HOURLY. START iv CEFEPIME 2 G iv PIGGYBACK EVERY 12 HOURLY. 03/27/18 CONTINUE iv VANCOMYCIN 1250 MG iv PIGGYBACK EVERY 12 HOURLY FOR NOW. PATIENT WILL NEED 4-6WKS IV/ F/U BY PO ANTIBIOTICS FOR OSTEOMYELITIS OF THE LEFT BIG TOE. LOCAL WOUND CARE PER PODIATRY. PATIENT TO RECEIVE ORTHO SHOE FOR HIS LT. FOOT. WILL REQUEST DR BENJAMIN FOR THE SAME.
[2018-03-27] MEDS: Cefepime IV 2 gm in Dextrose 2 GM/100 ML BAG IVPB SCH (14:45)
[2018-03-27] MEDS: (Lantus) Insulin Glargine, Recombinant SC SCH (21:09)
[2018-03-28] MEDS: Cefepime IV 2 gm in Dextrose 2 GM/100 ML BAG IVPB SCH ×2 (02:32→15:43)
[2018-03-28 05:38] LABS: BASO % 0.4 % (0.0-2.0); EOS # 0.2 K/uL (0.0-0.7); EOS % 3.7 % (0.0-4.0); HEMOGLOBIN 12.6 g/dL (12.0-18.0); LYMPH # 1.4 K/uL (1.0-4.3); MEAN CELL VOLUME 83.9 fL (80.0-94.0); MEAN CORPUSCULAR HEMOGLOBIN 29.7 pg (27.0-31.0); MEAN CORPUSCULAR HGB CONC 35.4 g/dL (33.0-37.0); MEAN PLATELET VOLUME 8.8 fL (7.2-11.7); MONO # 0.3 K/uL (0.0-0.8); MONO % 6.4 % (0.0-10.0); NEUT # 3.3 K/uL (1.8-7.0); NEUT % 62.5 % (50.0-75.0); NRBC % 0.1 % (0.0-2.0); RBC 4.23 Mil/uL (4.40-5.90); RED CELL DISTRIBUTION WIDTH 13.6 % (11.5-14.5); WHITE BLOOD COUNT 5.2 K/uL (4.8-10.8)
[2018-03-28 06:09] LABS: BLOOD UREA NITROGEN 10 mg/dL (9-20); GFR AFRICAN-AMERICAN > 60; GFR NON-AFRICAN AMERICAN > 60
[2018-03-28] MEDS: (Novolin R) Insulin Human Regular 100 units/ml vial SC SCH ×4 (08:02→21:35)
--- NOTE | 2018-03-28 15:08 | CP.PCM.PN ---
Subjective - Date & Time of Evaluation Date of Evaluation: 03/28/18 Time of Evaluation: 15:08 - Subjective Subjective: CHIEF COMPLAINTS TODAY : patient has discomfort in the left foot. ROS. HEENT : N. Resp : No cough, wheezing ,pleuritic CP ,or hemoptysis Cardio : No anginal CP, PND, orthopnea, palpitation GI : No abd.pain, n/v ,diarrhea or GI bleeding . SUPERVISOR CRACK OFF : No headache, vertigo, focal deficit. Musculoskel : No joint swelling , Derm : No rash Psych : Normal affect. Ext : No swelling ,calf pain PE. Pt. is alert awake in no distress. V.S As noted in the chart Head ,ear nose,throat and eyes : Normal. Neck : Supple with normal carotids. Lungs: Clear air entry. Heart : S1 & S2 normal with S4. No murmur. Abd : Soft non tender with normal bowel sounds. Neuro : Moves all ext. with no localized deficit. Ext : No edema with intact pulses.Non tender calves . Left foot on the dorsum there is mild cellulitis and there is a superficial ulcer in the left big toe. Derm : No rashes or decubitus ulcer. LABS/RADIOLOGY: three-phase bone scan of the left lower extremity positive for osteomyelitis of the first digit. the wound culture of the left big toe shows Enterobacter cloaca plus Corynebacterium ASSESSMENT/PLAN : continue IV antibiotics as ordered by ID. Local wound care. PICC line on Thursday and plan for IV antibiotics as an outpatient. Objective - Vital Signs/Intake and Output Vital Signs (last 24 hours): Temp Pulse Resp BP Pulse Ox 97.8 F 93 H 20 128/84 98 03/28/18 08:00 03/28/18 08:00 03/28/18 08:00 03/28/18 08:00 03/28/18 08:00 Intake and Output: 03/28/18 03/28/18 11:59 23:59 Intake Total 580 Balance 580 - Medications Medications: Current Medications Gabapentin (Neurontin) 300 mg PO BID [facility] Last Admin: 03/28/18 10:12 Dose: 300 mg Vancomycin HCl 1,250 mg/ (Sodium Chloride) 250 mls @ 166.6 mls/hr IVPB Q12H [facility] PRN Reason: Protocol Last Admin: 03/28/18 06:11 Dose: 166.6 mls/hr Cefepime HCl (Maxipime Iv 2 Gm Premix) 2 gm in 100 mls @ 200 mls/hr IVPB Q12H [facility] PRN Reason: Protocol Stop: 04/01/18 15:31 Last Admin: 03/28/18 02:32 Dose: 200 mls/hr Insulin Glargine (Lantus) 15 unit SC HS [facility] Last Admin: 03/27/18 21:09 Dose: 15 units Insulin Human Regular (Novolin R) 0 unit SC ACHS [facility] PRN Reason: Protocol Last Admin: 03/28/18 12:18 Dose: 3 unit Metformin HCl (Glucophage Xr) 500 mg PO BID [facility] Last Admin: 03/28/18 10:12 Dose: 500 mg Mupirocin (Bactroban Ointment) 1 gm TOP BID [facility] Last Admin: 03/27/18 21:08 Dose: 1 applic - Labs Labs: 03/28/18 05:35 03/28/18 05:35
--- NOTE | 2018-03-28 18:56 | CP.PCM.PN ---
Subjective - Date & Time of Evaluation Date of Evaluation: 03/28/18 Time of Evaluation: 18:52 - Subjective Subjective: Podiatry progress note for attending Dr. Figueroa 42 year old male was seen and evaluated at bedside for left hallux wound with cellulites. Patient is AAO X 3. Patient was setting in his bed comfortably and not in acute distress. Patient states that the nurse did dress his ulcer earlier with bactroban and medi-honey. Patient denies of having any recent F/N/V /C/SOB/CP/headache. Denies of having any other pedal complains at this time. Objective - Vital Signs/Intake and Output Vital Signs (last 24 hours): Temp Pulse Resp BP Pulse Ox 97.9 F 79 20 135/94 H 98 03/28/18 15:04 03/28/18 15:04 03/28/18 15:04 03/28/18 15:04 03/28/18 15:04 Intake and Output: 03/28/18 03/28/18 06:59 18:59 Intake Total 580 400 Output Total 600 Balance 580 -200 - Medications Medications: Current Medications Gabapentin (Neurontin) 300 mg PO BID [facility] Last Admin: 03/28/18 17:20 Dose: 300 mg Vancomycin HCl 1,250 mg/ (Sodium Chloride) 250 mls @ 166.6 mls/hr IVPB Q12H [facility] PRN Reason: Protocol Last Admin: 03/28/18 17:21 Dose: 166.6 mls/hr Cefepime HCl (Maxipime Iv 2 Gm Premix) 2 gm in 100 mls @ 200 mls/hr IVPB Q12H [facility] PRN Reason: Protocol Stop: 04/01/18 15:31 Last Admin: 03/28/18 15:43 Dose: 200 mls/hr Insulin Glargine (Lantus) 15 unit SC HS [facility] Last Admin: 03/27/18 21:09 Dose: 15 units Insulin Human Regular (Novolin R) 0 unit SC ACHS [facility] PRN Reason: Protocol Last Admin: 03/28/18 17:25 Dose: 2 unit Metformin HCl (Glucophage Xr) 500 mg PO BID [facility] Last Admin: 03/28/18 17:19 Dose: 500 mg Mupirocin (Bactroban Ointment) 1 gm TOP BID [facility] Last Admin: 03/28/18 10:00 Dose: 1 applic - Labs Labs: 03/28/18 05:35 03/28/18 05:35 - Constitutional Appears: Well, Non-toxic, No Acute Distress - Head Exam Head Exam: ATRAUMATIC, NORMOCEPHALIC - Extremities Exam Additional comments: Bilateral LE focused exam Vasc: DP/PT 2/4 b/l, Cap refill time: < 3 sec to all digits, Temp gradient: warm to cool from proximal to distal, minimal non-pitting edema noted to the dorsal left forefoot Neuro: Protective sensation grossly diminished, Gross sensation intact. Derm: Wound measuring approx 2.5 cm x 1.8cm x 0.3 cm was noted at the distal medial aspect of the left hallux, wound bed is 70% fibrotic and 30% grannular with no drainage, no purulent drainage, no malodor, no tunneling, no tracking, no probing to bone. No undermining, No periwound erythema MSK: mild pain on palpation of the wound - Neurological Exam Neurological Exam: Alert, Awake, Oriented x3 - Psychiatric Exam Psychiatric exam: Normal Affect, Normal Mood Assessment and Plan - Assessment and Plan (Free Text) Assessment: 42 year old male patient was evaluated for left hallux wound accompanied with cellulitis Plan: Patient seen and evaluated at the bedside Discussed plan with attending Dr. Figueroa Labs, vitals and charts reviewed - afebrile, no leukocytosis X-rays of the foot reviewed - no acute periostal reaction, no cortical break, no signs of acute OM Bone scan reviewed - Positive 3 phase bone scan Patient will require PICC line and assisted IV abx Wound culture: G- rods, Corynebacterium species IV abx as per ID - Vancomycin, Zosyn Wound dressing applied using DSD and bactroban Podiatry to follow up patient while in-house Upon discharge, please follow up with Dr. Figueroa for further wound care
[2018-03-28] MEDS: (Lantus) Insulin Glargine, Recombinant SC SCH (21:34)
[2018-03-29] MEDS: Cefepime IV 2 gm in Dextrose 2 GM/100 ML BAG IVPB SCH ×2 (02:49→16:16)
[2018-03-29 07:44] LABS: BASO % 0.6 % (0.0-2.0); EOS # 0.2 K/uL (0.0-0.7); EOS % 4.3 % (0.0-4.0); HEMOGLOBIN 12.6 g/dL (12.0-18.0); LYMPH # 1.4 K/uL (1.0-4.3); LYMPH % 25.9 % (20.0-40.0); MEAN CELL VOLUME 83.8 fL (80.0-94.0); MEAN CORPUSCULAR HEMOGLOBIN 30.1 pg (27.0-31.0); MEAN CORPUSCULAR HGB CONC 35.9 g/dL (33.0-37.0); MEAN PLATELET VOLUME 9.5 fL (7.2-11.7); MONO # 0.4 K/uL (0.0-0.8); MONO % 7.6 % (0.0-10.0); NEUT # 3.3 K/uL (1.8-7.0); NEUT % 61.6 % (50.0-75.0); RBC 4.18 Mil/uL (4.40-5.90); RED CELL DISTRIBUTION WIDTH 13.4 % (11.5-14.5); WHITE BLOOD COUNT 5.4 K/uL (4.8-10.8)
[2018-03-29 08:08] VITALS: TEMP 97.7
[2018-03-29] MEDS: (Novolin R) Insulin Human Regular 100 units/ml vial SC SCH ×3 (08:16→17:32)
--- NOTE | 2018-03-29 12:25 | CP.PCM.PN ---
Subjective - Date & Time of Evaluation Date of Evaluation: 03/29/18 Time of Evaluation: 12:25 - Subjective Subjective: afebrile, VSS. PODIATRY F/U APPRECIATED. CASE DISCUSSED WITH CUSTOM [employer]AN [employer] [place]/PMD. PT TO GET PICC LINE TODAY . ABX DISCUSSED. ON DISCHARGE PT. TO 1. CONTINUE IV CEFEPIME 2GM IVPB Q 12HRLY X 4WKS 2. F/U BY PO CIPRO 500MG BID X 2 WKS. 3. DC IV VANCMYCIN ON D/C. MONITOR WEEKLY AND NOTIFY PMD. CBC W DIFF BMP,LFTS. ESR CRP . PT TO F/U WITH DR BENJAMIN (PODIATRY ) DR SÁNCHEZ (ID ) DR AVALOS (PMD ) Objective - Vital Signs/Intake and Output Vital Signs (last 24 hours): Temp Pulse Resp BP Pulse Ox 97.7 F 81 20 133/93 H 99 03/29/18 08:07 03/29/18 08:07 03/29/18 08:07 03/29/18 08:07 03/29/18 08:07 Intake and Output: 03/29/18 03/29/18 06:59 18:59 Intake Total 710 Balance 710 - Medications Medications: Current Medications Gabapentin (Neurontin) 300 mg PO BID [facility] Last Admin: 03/29/18 10:06 Dose: 300 mg Vancomycin HCl 1,250 mg/ (Sodium Chloride) 250 mls @ 166.6 mls/hr IVPB Q12H [facility] PRN Reason: Protocol Last Admin: 03/29/18 06:03 Dose: 166.6 mls/hr Cefepime HCl (Maxipime Iv 2 Gm Premix) 2 gm in 100 mls @ 200 mls/hr IVPB Q12H [facility] PRN Reason: Protocol Stop: 04/01/18 15:31 Last Admin: 03/29/18 02:49 Dose: 200 mls/hr Insulin Glargine (Lantus) 15 unit SC HS [facility] Last Admin: 03/28/18 21:34 Dose: 15 units Insulin Human Regular (Novolin R) 0 unit SC ACHS [facility] PRN Reason: Protocol Last Admin: 03/29/18 12:11 Dose: 2 unit Metformin HCl (Glucophage Xr) 500 mg PO BID [facility] Last Admin: 03/29/18 10:06 Dose: 500 mg Mupirocin (Bactroban Ointment) 1 gm TOP BID [facility] Last Admin: 03/29/18 10:00 Dose: 1 applic - Labs Labs: 03/29/18 07:19 03/28/18 05:35 Assessment and Plan (1) Diabetic infection of left foot Status: Acute (2) Cellulitis Status: Acute (3) DM (diabetes mellitus) Status: Acute
--- NOTE | 2018-03-29 12:35 | CP.PCM.PN ---
Subjective - Date & Time of Evaluation Date of Evaluation: 03/29/18 Time of Evaluation: 12:34 - Subjective Subjective: CHIEF COMPLAINTS TODAY : patient has discomfort in the left foot. ROS. HEENT : N. Resp : No cough, wheezing ,pleuritic CP ,or hemoptysis Cardio : No anginal CP, PND, orthopnea, palpitation GI : No abd.pain, n/v ,diarrhea or GI bleeding . A P MECHANIC : No headache, vertigo, focal deficit. Musculoskel : No joint swelling , Derm : No rash Psych : Normal affect. Ext : No swelling ,calf pain PE. Pt. is alert awake in no distress. V.S As noted in the chart Head ,ear nose,throat and eyes : Normal. Neck : Supple with normal carotids. Lungs: Clear air entry. Heart : S1 & S2 normal with S4. No murmur. Abd : Soft non tender with normal bowel sounds. Neuro : Moves all ext. with no localized deficit. Ext : No edema with intact pulses.Non tender calves . Left foot on the dorsum there is mild cellulitis and there is a superficial ulcer in the left big toe. Derm : No rashes or decubitus ulcer. LABS/RADIOLOGY: three-phase bone scan of the left lower extremity positive for osteomyelitis of the first digit. the wound culture of the left big toe shows Enterobacter cloaca plus Corynebacterium ASSESSMENT/PLAN : PICC line will be placed today. Discussed with patient for home infusion of IV antibiotic or outpatient on a daily basis. IV antibiotics as per ID Objective - Vital Signs/Intake and Output Vital Signs (last 24 hours): Temp Pulse Resp BP Pulse Ox 97.7 F 81 20 133/93 H 99 03/29/18 08:07 03/29/18 08:07 03/29/18 08:07 03/29/18 08:07 03/29/18 08:07 Intake and Output: 03/29/18 03/29/18 11:59 23:59 Intake Total 710 Balance 710 - Medications Medications: Current Medications Gabapentin (Neurontin) 300 mg PO BID [facility] Last Admin: 03/29/18 10:06 Dose: 300 mg Vancomycin HCl 1,250 mg/ (Sodium Chloride) 250 mls @ 166.6 mls/hr IVPB Q12H [facility] PRN Reason: Protocol Last Admin: 03/29/18 06:03 Dose: 166.6 mls/hr Cefepime HCl (Maxipime Iv 2 Gm Premix) 2 gm in 100 mls @ 200 mls/hr IVPB Q12H [facility] PRN Reason: Protocol Stop: 04/01/18 15:31 Last Admin: 03/29/18 02:49 Dose: 200 mls/hr Insulin Glargine (Lantus) 15 unit SC HS [facility] Last Admin: 03/28/18 21:34 Dose: 15 units Insulin Human Regular (Novolin R) 0 unit SC ACHS [facility] PRN Reason: Protocol Last Admin: 03/29/18 12:11 Dose: 2 unit Metformin HCl (Glucophage Xr) 500 mg PO BID [facility] Last Admin: 03/29/18 10:06 Dose: 500 mg Mupirocin (Bactroban Ointment) 1 gm TOP BID [facility] Last Admin: 03/29/18 10:00 Dose: 1 applic - Labs Labs: 03/29/18 07:19 03/28/18 05:35
--- NOTE | 2018-03-29 14:04 | RAD ---
HISTORY: PICC placement COMPARISON: Chest radiograph dated 03/23/2018. FINDINGS: LUNGS: No active pulmonary disease. PLEURA: No significant pleural effusion identified, no pneumothorax apparent. CARDIOVASCULAR: Normal. OSSEOUS STRUCTURES: No significant abnormalities. VISUALIZED UPPER ABDOMEN: Normal. OTHER FINDINGS: Right upper extremity PICC with catheter tip in the proximal SVC. IMPRESSION: No active disease. Satisfactory placement of right upper extremity PICC.
[2018-03-29 15:45] VITALS: PULSE 83; O2SAT 100
[2018-03-29 15:49] VITALS: BP 149/95
--- NOTE | 2018-03-30 07:55 | CP.PCM.PN ---
Subjective - Date & Time of Evaluation Date of Evaluation: 03/29/18 Time of Evaluation: 11:00 - Subjective Subjective: Alert and orientedx3, not in acute pain or distress. Objective - Vital Signs/Intake and Output Vital Signs (last 24 hours): Temp Pulse Resp BP Pulse Ox 97.7 F 83 20 149/95 H 100 03/29/18 15:00 03/29/18 15:00 03/29/18 15:00 03/29/18 15:00 03/29/18 15:00 - Labs Labs: 03/29/18 07:19 03/28/18 05:35 Assessment and Plan - Assessment and Plan (Free Text) Assessment: Patient diagnosed with osteomyelitis right foot, seen and examined. Alert and orientedx3, no acute pain or distress. Discussed with DR Gunn and DR Lindsey, plan to discharge home on iv cefepime 2gm bid x4 weeks followed by cipro 500mg po bidx 2 weeks. PICC line is inserted and home infusion arranged by the social work case manager. Will check labs q week and advised to follow up with ID and podiatry in 1 week.
== END 2018-03-29 20:33 | disposition home or self-care (01) | DRG 638 ==
LOC: C.ER 19:44 → SUPCPDRO 19:44 → C.9E 23:24 → C.3T 03-24 00:24
PROVIDERS: ADMIT Internal Medicine Cardiovascular Disease; ATTEND Internal Medicine Cardiovascular Disease
PROC: 02HV33Z Insertion of Infusion Device into Superior Vena Cava, Percutaneous Approach (ICD-10-PCS; principal; 2018-03-29)
DX: E11.628 Type 2 diabetes mellitus with other skin complications (principal); L03.116 Cellulitis of left lower limb; M86.8X7 Other osteomyelitis, ankle and foot; Z79.4 Long term (current) use of insulin; E11.69 Type 2 diabetes mellitus with other specified complication; L97.529 Non-pressure chronic ulcer of other part of left foot with unspecified severity